=== PATIENT | female | born 1990 | race American Indian/Alaskan Native ===

== ENCOUNTER 2022-05-04 17:51 | Emergency (ER) | payer SELFPAY ==
[2022-05-04 20:26] VITALS: BP 109/63
--- NOTE | 2022-05-04 22:03 | Emergency Department Report ---
ED ENT HPI - General Chief complaint: Dental/Oral Stated complaint: TOOTHACHE x3DAYS Time Seen by Provider: 05/04/22 21:57 Source: patient Mode of arrival: Ambulatory Limitations: No Limitations - History of Present Illness MD complaint: tooth pain -: Gradual 1 - Distal erosion Severity: mild, moderate Quality: dull Consistency: constant Improves with: none Worsens with: none Context- Dental: history of dental caries Associated Symptoms: toothache. denies: cough, sore throat, tinnitus, discharge from ear - Related Data Previous Rx's Medication Instructions Recorded Last Taken Type Amoxicillin [Amoxicillin TAB] 875 mg PO BID #20 05/04/22 Unknown Rx Chlorhexidine Mouthwash [Peridex] 15 ml MM BID #1 bottle 05/04/22 Unknown Rx Ketorolac [Toradol] 10 mg PO Q6H PRN #15 tablet 05/04/22 Unknown Rx Lidocaine Viscous 2% 5 ml MM Q3H PRN #120 udc 05/04/22 Unknown Rx Allergies Allergy/AdvReac Type Severity Reaction Status Date / Time No Known Allergies Allergy Unverified 05/04/22 20:01 ED Dental HPI - General Chief complaint: Dental/Oral Stated complaint: TOOTHACHE x3DAYS Time Seen by Provider: 05/04/22 21:57 Source: patient Mode of arrival: Ambulatory Limitations: No Limitations - Related Data Previous Rx's Medication Instructions Recorded Last Taken Type Amoxicillin [Amoxicillin TAB] 875 mg PO BID #20 05/04/22 Unknown Rx Chlorhexidine Mouthwash [Peridex] 15 ml MM BID #1 bottle 05/04/22 Unknown Rx Ketorolac [Toradol] 10 mg PO Q6H PRN #15 tablet 05/04/22 Unknown Rx Lidocaine Viscous 2% 5 ml MM Q3H PRN #120 udc 05/04/22 Unknown Rx Allergies Allergy/AdvReac Type Severity Reaction Status Date / Time No Known Allergies Allergy Unverified 05/04/22 20:01 ED Review of Systems ROS: Stated complaint: TOOTHACHE x3DAYS Other details as noted in HPI ED Past Medical Hx - Social History Smoking Status: Never Smoker Substance Use Type: None - Medications Home Medications: Home Medications Medication Instructions Recorded Confirmed Last Taken Type Amoxicillin [Amoxicillin TAB] 875 mg PO BID #20 05/04/22 Unknown Rx Chlorhexidine Mouthwash [Peridex] 15 ml MM BID #1 bottle 05/04/22 Unknown Rx Ketorolac [Toradol] 10 mg PO Q6H PRN #15 tablet 05/04/22 Unknown Rx Lidocaine Viscous 2% 5 ml MM Q3H PRN #120 udc 05/04/22 Unknown Rx ED Physical Exam - General Limitations: No Limitations General appearance: alert, in no apparent distress - Head Head exam: Present: atraumatic, normocephalic - Eye Eye exam: Present: normal appearance - ENT ENT exam: Present: mucous membranes moist, other (Several dental caries and several areas of dental erosion with adjacent gingival erythema. Airway patent and uvula midline. No exudate noted. No active bleeding. No drooling. Lymphadenopathy to the left tonsillar lymph node) - Neck Neck exam: Present: normal inspection - Respiratory Respiratory exam: Present: normal lung sounds bilaterally. Absent: respiratory distress - Cardiovascular Cardiovascular Exam: Present: regular rate, normal rhythm. Absent: systolic murmur, diastolic murmur, rubs, gallop - GI/Abdominal GI/Abdominal exam: Present: soft, normal bowel sounds - Extremities Exam Extremities exam: Present: normal inspection - Back Exam Back exam: Present: normal inspection - Neurological Exam Neurological exam: Present: alert, oriented X3 - Psychiatric Psychiatric exam: Present: normal affect, normal mood - Skin Skin exam: Present: warm, dry, intact, normal color. Absent: rash ED Course Vital Signs 05/04/22 20:25 Temperature 98.6 F Pulse Rate 69 Respiratory 16 Rate Blood Pressure 109/63 [Right] O2 Sat by Pulse 99 Oximetry Critical care attestation.: If time is entered above; I have spent that time in minutes in the direct care of this critically ill patient, excluding procedure time. ED Disposition Clinical Impression: Infected dental caries, Dentalgia Disposition: 01 HOME / SELF CARE / HOMELESS Is pt being admited?: No Does the pt Need Aspirin: No Condition: Stable Instructions: Dental Abscess, [id number], Acute Pain, Adult, Dental Sealants Prescriptions: Amoxicillin [Amoxicillin TAB] 875 mg PO BID #20 Lidocaine Viscous 2% 5 ml MM Q3H PRN #120 udc PRN Reason: Pain, Moderate (4-6) Chlorhexidine Mouthwash [Peridex] 15 ml MM BID #1 bottle Ketorolac [Toradol] 10 mg PO Q6H PRN #15 tablet PRN Reason: Pain Referrals: [facility] [Outside] - 3-5 Days
[2022-05-04] MEDS ORDERED: ACETAMINOPHEN 500 MG TAB PO ONE (22:49)
[2022-05-04] MEDS ORDERED: IBUPROFEN 600 MG TAB PO ONE (22:49)
== END 2022-05-05 01:09 | disposition home or self-care (01) ==
LOC: ED 17:51
DX: K04.7 Periapical abscess without sinus (principal); K08.89 Other specified disorders of teeth and supporting structures
CPT/HCPCS: 99282